=== PATIENT | male | born 1995 | race Caucasian/White ===

== ENCOUNTER → 2020-07-07 | Outpatient (CLI) | payer BC, OTHER | END | disposition home or self-care (01) | LOC: LABWHC1 15:26 | PROVIDERS: ATTEND Family Medicine | DX: Z20.828 Contact with and (suspected) exposure to other viral communicable diseases (principal) | CPT/HCPCS: U0003; C9803 ==

== ENCOUNTER 2023-05-15 01:25 | Emergency (ER) | payer BC, OTHER ==
[2023-05-15] MEDS ORDERED: IBUPROFEN 800 MG TAB PO STA (01:52)
[2023-05-15] MEDS ORDERED: ACETAMINOPHEN TAB 500 MG TAB PO STA (02:05)
[2023-05-15 03:10] VITALS: TEMP 100.8
[2023-05-15] MEDS ORDERED: AMOXICILLIN 875 MG TAB PO STA (03:11)
--- NOTE | 2023-05-15 03:27 | ED ---
Fever HPI - General Chief Complaint: Fever Stated Complaint: Fever Time Seen by Provider: 05/15/23 01:51 Source: patient Mode of arrival: ambulatory Limitations: no limitations - History of Present Illness Initial Comments: Patient is a 27-year-old male who presents to the emergency department for fever for the past 2 days. He also has mild throat pain. No chest pain or shortness of breath. - Related Data Previous Rx's Medication Instructions Recorded Amoxicillin 875 mg PO Q12HR #20 tablet 05/15/23 Allergies Allergy/AdvReac Type Severity Reaction Status Date / Time No Known Allergies Allergy Verified 05/15/23 01:36 Review of Systems ROS Statement: Those systems with pertinent positive or pertinent negative responses have been documented in the HPI. ROS Other: All systems not noted in ROS Statement are negative. Past Medical History Past Medical History: No Reported History History of Any Multi-Drug Resistant Organisms: None Reported Past Surgical History: No Surgical Hx Reported Past Psychological History: No Psychological Hx Reported Smoking Status: Never smoker Past Alcohol Use History: None Reported Past Drug Use History: Marijuana General Exam Limitations: no limitations General appearance: alert Eye exam: Present: normal appearance, PERRL, EOMI. Absent: scleral icterus, conjunctival injection, periorbital swelling ENT exam: Present: normal oropharynx Respiratory exam: Present: normal lung sounds bilaterally. Absent: respiratory distress, wheezes, rales, rhonchi, stridor Cardiovascular Exam: Present: regular rate, normal rhythm, normal heart sounds. Absent: systolic murmur, diastolic murmur, rubs, gallop, clicks Neurological exam: Present: alert Psychiatric exam: Present: normal affect, normal mood Skin exam: Present: warm, dry, intact, normal color. Absent: rash Course Vital Signs 05/15/23 05/15/23 05/15/23 01:34 03:10 04:19 Temperature 103.1 F H 100.8 F H Pulse Rate 106 H 81 Respiratory 20 16 Rate Blood Pressure 111/71 95/66 O2 Sat by Pulse 97 98 Oximetry Medical Decision Making - Medical Decision Making Was pt. sent in by a medical professional or institution (, PA, [facility], urgent care, hospital, or [facility]...) When possible be specific @ -No Did you speak to anyone other than the patient for history (EMS, parent, family, police, friend...)? What history was obtained from this source @ -No Did you review nursing and triage notes (agree or disagree)? Why? @ -I reviewed and agree with nursing and triage notes Were old charts reviewed (outside hosp., previous admission, EMS record, old EKG, old radiological studies, urgent care reports/EKG's, [facility] records)? Report findings @ -No old charts were reviewed Differential Diagnosis (chest pain, altered mental status, abdominal pain women, abdominal pain men, vaginal bleeding, weakness, fever, dyspnea, syncope, headache, dizziness, GI bleed, back pain, seizure, CVA, palpatations, mental health)? @ -URI, sinusitus,strep pharyngitis, viral pharyngitis, pneumonia, bronchitis- this list is not meant to be all-inclusive EKG interpreted by me (3pts min.). @ -As above X-rays interpreted by me (1pt min.). @ -None done CT interpreted by me (1pt min.). @ -None done U/S interpreted by me (1pt. min.). @ -None done What testing was considered but not performed or refused? (CT, X-rays, U/S, labs)? Why? @ -None What meds were considered but not given or refused? Why? @ -None Did you discuss the management of the patient with other professionals (professionals i.e. , PA, [employer], lab, RT, psych nurse, social work faculty member, bilingual customer service specialist, teacher, customer service security officer, egg caser)? Give summary @ -No Was smoking cessation discussed for >3mins.? @ -No Was critical care preformed (if so, how long)? @ -No Were there social determinants of health that impacted care today? How? (Homelessness, low income, unemployed, alcoholism, drug addiction, transportation, low edu. Level, literacy, decrease access to med. care, [facility], rehab)? @ -No Was there de-escalation of care discussed even if they declined (Discuss DNR or withdrawal of care, Hospice)? DNR status @ -No What co-morbidities impacted this encounter? (DM, HTN, Smoking, COPD, CAD, Cancer, CVA, ARF, Chemo, Hep., AIDS, mental health diagnosis, sleep apnea, morbid obesity)? @ -None Was patient admitted / discharged? Hospital course, mention meds given and route, prescriptions, significant lab abnormalities, going to OR and other pert inent info. @ -Patient has strep is discharged with amoxicillin Undiagnosed new problem with uncertain prognosis? @ -No Drug Therapy requiring intensive monitoring for toxicity (Heparin, Nitro, Insulin, Cardizem)? @ -No Were any procedures done? @ -No Diagnosis/symptom? @ -[Strep throat Acute, or Chronic, or Acute on Chronic? @ -Acute Uncomplicated (without systemic symptoms) or Complicated (systemic symptoms)? @ -Uncomplicated Side effects of treatment? @ -No Exacerbation, Progression, or Severe Exacerbation? @ -No Poses a threat to life or bodily function? How? (Chest pain, [place], [place], pneumonia, PE, COPD, DKA, ARF, appy, cholecystitis, CVA, Diverticulitis, Homicidal, Suicidal, threat to staff... and all critical care pts) @ -No Dr. Engel is my attending - Lab Data Lab Results 05/15/23 05/15/23 Range/Units 02:36 02:36 Influenza Type A (PCR) Not Detected (Not Detectd) Influenza Type B (PCR) Not Detected (Not Detectd) RSV (PCR) Not Detected (Not Detectd) SARS-CoV-2 (PCR) Not Detected (Not Detectd) Group A Strep (PCR) DETECTED A (Not Detectd) Disposition Clinical Impression: Strep throat Disposition: HOME SELF-CARE Condition: Good Instructions (If sedation given, give patient instructions): Strep Throat (ED) Additional Instructions: Alternate Tylenol and Motrin every 3-4 hours for fever. Take antibiotic as directed. Follow-up with primary care provider in one to 2 days. Return to the emergency department if you experience new, concerning, or worsening symptoms Prescriptions: Amoxicillin 875 mg PO Q12HR #20 tablet Is patient prescribed a controlled substance at d/c from ED?: No Referrals: Derek Gagnon DO [Primary Care Provider] - 1-2 days
[2023-05-15 04:22] VITALS: BP 95/66; PULSE 81; RESP 16
== END 2023-05-15 04:21 | disposition home or self-care (01) ==
LOC: EC 01:25
DX: J02.0 Streptococcal pharyngitis (principal); B95.0 Streptococcus, group A, as the cause of diseases classified elsewhere; F12.90 Cannabis use, unspecified, uncomplicated; Z20.822 Contact with and (suspected) exposure to COVID-19
CPT/HCPCS: 87636; 87651; 99283

== ENCOUNTER 2023-07-24 00:48 | Emergency (ER) | payer OTHER ==
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
[2023-07-24] MEDS ORDERED: DIPH,PERTUS(ACELL)TETVAC-LF 0.5 ML VIAL IM ONE (01:12)
[2023-07-24 01:41] VITALS: TEMP 98.6
[2023-07-24 01:50] VITALS: BP 119/73; PULSE 86; RESP 20
== END 2023-07-24 01:32 | disposition home or self-care (01) ==
LOC: EC 00:48
DX: T23.232A Burn of second degree of multiple left fingers (nail), not including thumb, initial encounter (principal); T31.0 Burns involving less than 10% of body surface; F12.90 Cannabis use, unspecified, uncomplicated; Z23 Encounter for immunization; X10.2XXA Contact with fats and cooking oils, initial encounter
CPT/HCPCS: 90471; 90715; 99283

== ENCOUNTER → 2023-08-09 | Outpatient (CLI) | payer OTHER ==
--- NOTE | 2023-08-09 17:33 | US ---
EXAMINATION TYPE: US thyroid st tissue head/neck DATE OF EXAM: 08/09/2023 COMPARISON: NONE CLINICAL INDICATION: Male, 27 years old with history of R59.0 LOCALIZED ENLARGED LYMPH NODES; Patient noticed lumps on right lateral neck about a month ago, states they have decreased in size. Patient d iagnosedwith mono at about same time. Patient denies any other signs and symptoms/ history TECHNIQUE: FINDINGS: Multiple lymph nodes seen bilateral lateral neck. Largest listed below. Right = 2.2 x 0.9 x 1.7 cm 3.7 x 0.9 x 4.0 cm IMPRESSION: Multiple lymph nodes seen throughout the neck. Consider complete evaluation of the neck with CT with IV contrast. Findings likely reactive given patient age.
== END | disposition home or self-care (01) ==
LOC: RADUSWWP 14:54
PROVIDERS: ATTEND Family Medicine
DX: R59.0 Localized enlarged lymph nodes (principal)
CPT/HCPCS: 76536